=== PATIENT | female | born 1970 | race Caucasian/White ===

== ENCOUNTER 2019-01-15 16:31 | Emergency (ER) | payer OTHER ==
[~2019-01-15] VITALS: Ht 162.6 cm; Wt 68.0 kg
[2019-01-15] MEDS ORDERED: AZILECT1 MG PO (16:49)
[2019-01-15] MEDS ORDERED: SINEMET 25-1001 EAC1 ORAL (16:49)
[2019-01-15] MEDS ORDERED: Acetaminophen 500mg (ES) tab ORAL ONE (17:00)
--- NOTE | 2019-01-15 17:01 | Emergency Room Report ---
History of Present Illness General Chief Complaint: General Complaint Source: Patient Present Illness HPI 49-year-old female patient presents the ER complaining of right lower extremity pain for the past 3 days. Reports pain is in her calf and posterior humeral area. Reports swelling in her right lower extremity during this time. Denies recent periods of immobilization. Denies chest pain or shortness of breath. Denies recent injury or trauma. Reports pain is been increasing in intensity. Denies taking blood thinner medication. Denies fever. Denies other aggravating or relieving factors. Reports pain with ambulation. Allergies: Coded Allergies: HYDROMORPHONE (Verified Allergy, Unknown, 01/15/19) Patient History Past Medical History: see triage record Last Menstrual Period: on period Reviewed Nursing Documentation: PMH: Agreed; PSxH: Agreed Nursing Documentation-PMH Past Medical History: No History, Except For Hx Neurological Problems: Yes - Parkinson Review of Systems All Other Systems: negative except mentioned in HPI Physical Exam Vital Signs Date Time Temp Pulse Resp B/P (MAP) Pulse Ox O2 Delivery O2 Flow Rate FiO2 01/15/19 16:46 98.2 90 16 124/86 98 Room Air Sp02 EP Interpretation: reviewed, normal General Appearance: well appearing, no apparent distress, alert, GCS 15, non- toxic Head: normocephalic, atraumatic Eyes: bilateral eye normal inspection, bilateral eye PERRL ENT: hearing grossly normal, normal pharynx, no angioedema, normal voice, TMs + canals normal, uvula midline, moist mucus membranes Neck: full range of motion Respiratory: lungs clear, normal breath sounds, no rhonchi, no respiratory distress, no accessory muscle use, no wheezing, speaking full sentences Cardiovascular #1: regular rate, rhythm, no edema Cardiovascular #2: 2+ dorsalis pedis (R), 2+ dorsalis pedis (L) Musculoskeletal: back normal, digits/nails normal, gait/station normal, normal range of motion, Omega's Sign negative, other - NVI, cap refill less than 2 seconds, no erythema, mild swelling, negative Tejeda test for Achilles tear, tender - Right distal calf, right Achilles Neurologic: alert, oriented x3, responsive, motor strength/tone normal, sensory intact Psychiatric: mood/affect normal Skin: no rash Lymphatic: no adenopathy Medical Decision Making PA Attestation Dr. Lindo is my supervising Physician whom patient management has been discussed with. Diagnostic Impression: Primary Impression: Calcaneal spur ER Course Pt. presents to the ED c/o right lower extremity pain times 3 days. Ddx considered but are not limited to fracture, sprain, strain, contusion, dislocation, DVT, tendinitis. No erythema, no warmth to touch, no fever, nontoxic appearing, low suspicion for septic joint. Soft compartments, no pulselessness, no pallor, no paresthesias, low suspicion for compartment syndrome at this time. Vital signs: are WNL, pt. is afebrile Ordered X-ray and pain medication. ER COURSE Provided with pain medication. Right lower extremity ultrasound shows no DVT per the orthophotography technician. An X-ray of the right ankle shows no acute fracture per the preliminary reading , calcaneal spur noted. Likely causing pain symptoms are possible tendinitis symptoms. Advised patient follow-up with podiatry or step down specialist. Patient declines splint, Charbel wrap, crutches. Patient instructed on RICE method: rest, ice, compression, elevation. Patient instructed on rest, ice and heat. 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 Contact information for orthopedic urgent care provided, follow-up with urgent care if unable to followup with primary care provider and get referral to step down specialist. Followup with primary care provider. Discuss referral to ortho/pain management/ PT as needed. Discuss further imaging with MRI/CT as needed. DISCHARGE: -Rx provided for Tylenol for pain symptoms. At this time pt. is stable for d/c to home. Patient is resting comfortably, in no acute distress, nontoxic appearing, talking without difficulty. Will provide printed patient care instructions, and any necessary prescriptions. Patient instructed to follow with primary care provider in 3 - 5 days and to request further follow-up as needed. Care plan and follow up instructions have been discussed with the patient prior to discharge. Take medications as directed. Patient questions asked and answered. Patient reports understanding and agreement to treatment plan. ER precautions given, patient instructed to return to ER immediately for any new or worsening of symptoms. - Please note that this Emergency Department Report was dictated using [employer] technology software, occasionally this can lead to erroneous entry secondary to interpretation by the dictation equipment. Other X-Ray Diagnostic Results Other X-Ray Diagnostic Results : X-Ray ordered: Right ankle # of Views/Limited Vs Complete: 3 View Indication: Pain EP Interpretation: Yes PA Xray: Interpretation reviewed, by supervising MD, and agrees with findings. Interpretation: no dislocation, no soft tissue swelling, no fractures, other - Calcaneal spur Impression: No acute disease JOSÉ MIGUEL Damian PA-C CT/MRI/US Diagnostic Results CT/MRI/US Diagnostic Results : Imaging Test Ordered: Venous duplex ultrasound right lower extremity Impression Negative for DVT Last Vital Signs Date Time Temp Pulse Resp B/P (MAP) Pulse Ox O2 Delivery O2 Flow Rate FiO2 01/15/19 16:46 98.2 90 16 124/86 98 Room Air Status: improved Disposition: HOME, SELF-CARE Condition: Stable Scripts Acetaminophen* (TYLENOL EXTRA STRENGTH*) 500 Mg Tablet 500 MG ORAL Q8H PRN for Prn Headache/Temp > 101, #30 TAB 0 Refills Prov: Jaspal Damian 01/15/19 Patient Instructions: Achilles Tendinitis, Heel Spur Additional Instructions: Patient instructed to follow up with primary care provider and discuss further referral to orthopedics/physical therapy/pain management as needed. If unable to followup with PCP, followup with orthopedic urgent care in 5-7 days , call to schedule appointment. Patient instructed on RICE method: rest, ice, compression, elevation. Patient instructed to WBAT. Take medications as directed. Patient questions asked and answered. ER precautions given, patient instructed to return to ER immediately for any new or worsening of symptoms. [facility] [address] [facility] [address] [facility], [id number] [email or web address] Jaspal Damian Jan 15, 2019 17:01
--- NOTE | 2019-01-15 17:24 | Diagnostic Imaging Report ---
EXAM: XR Right Ankle Complete, 3 or More Views CLINICAL HISTORY: PAIN TECHNIQUE: Frontal, lateral and oblique views of the right ankle. COMPARISON: No relevant prior studies available. FINDINGS: Bones/joints: No acute fracture. Small posterior calcaneal spur. Soft tissues: No radiodense foreign body. IMPRESSION: No acute fracture.
--- NOTE | 2019-01-15 18:15 | NUR ---
ED Nurse Note: Pt has been having pain on RLE x 5 days, pain 2/10 geovani. Aox4, VSS. Will cont to monitor.
[2019-01-15] MEDS ORDERED: TYLENOL EXTRA500 MG ORAL (18:23)
[2019-01-15 18:26] VITALS: BP 120/79
[2019-01-15 18:28] VITALS: BP 120/79
--- NOTE | 2019-01-15 18:28 | NUR ---
ER DISCHARGE NOTE: Patient is cleared to be discharged per ERMD, pt is aox4, on room air, with stable vital signs. pt was given dc and prescription instructions, pt was able to verbalize understanding, pt id band removed. pt is able to ambulate with steady gait. pt took all belongings.
--- NOTE | 2019-01-15 20:22 | Diagnostic Imaging Report ---
EXAM: US Duplex Right Lower Extremity Veins CLINICAL HISTORY: PAIN TECHNIQUE: Real-time duplex ultrasound scan of the right lower extremity veins integrating B-mode two-dimensional vascular structure, Doppler spectral analysis, color flow Doppler imaging and compression. COMPARISON: No relevant prior studies available. FINDINGS: Deep veins: Unremarkable. No DVT in the visualized common femoral, femoral, proximal deep femoral or popliteal veins. The veins demonstrate normal color flow, are normally compressible, with normal phasic flow and/or augmentation response. Superficial veins: No thrombus in the visualized segments of the greater saphenous vein. Soft tissues: No acute findings. IMPRESSION: No DVT demonstrated.
== END 2019-01-15 18:28 | disposition home or self-care (01) ==
LOC: EMR 17:00
DX: M77.31 Calcaneal spur, right foot (principal); G20 Parkinson's disease; Z88.5 Allergy status to narcotic agent
CPT/HCPCS: 93971; 99284